=== PATIENT | female | born 1945 ===

== ENCOUNTER 2023-10-09 05:40 | Day surgery (SDC) | payer OTHER ==
[~2023-10-09 05:40] MED LIST: CARVEDILOL12.5 MG; ECOTRIN81 MG PO; GLUMETZA500 MG PO; NORVASC5 MG PO; ZESTRIL2.5 MG PO; ZOCOR20 MG PO
[2023-10-09] MEDS ORDERED: CEFAZOLIN SODIUM 1,000 MG VIAL ONE ×2 (08:35→08:39)
[2023-10-09] MEDS ORDERED: GENTAMICIN SULFATE 40 MG/ML VIAL ONE (08:39)
[2023-10-09] MEDS ORDERED: LIDOCAINE HCL 1%/EPINEPHRINE 20ML VIAL IJ ONE (08:39)
[2023-10-09] MEDS ORDERED: TRAM1TAB98 PO (11:22)
[2023-10-09] MEDS ORDERED: MACROBID 100 M100 MG PO (11:23)
== END 2023-10-09 13:45 | disposition home or self-care (01) ==
LOC: CIR.AMB 05:40
PROVIDERS: ATTEND Obstetrics & Gynecology Gynecology
DX: N81.11 Cystocele, midline (principal); E11.9 Type 2 diabetes mellitus without complications; I10 Essential (primary) hypertension